=== PATIENT | male | born 1945 | race Caucasian/White ===

== ENCOUNTER 2017-07-23 08:23 | Day surgery (SDC) | payer MEDICARE, OTHER ==
[~2017-07-23] VITALS: Ht 180.3 cm; Wt 85.0 kg
[~2017-07-23 08:23] MED LIST: ASPI81CH PO; EPIN.3I IM; Inderal40 MG; LISI10 PO; LOSA50 PO; LOVA40; LOVA40 PO; METO100ER PO; OLME20 PO; PROP10 PO; Prednisone20 MG PO; ZOLP10 PO
[2017-07-23] MEDS ORDERED: PROP120ER (08:48)
[2017-07-23] MEDS ORDERED: PRIM250 (08:48)
== END 2017-07-23 10:16 | disposition home or self-care (01) ==
LOC: ORSCSDS 08:23
PROVIDERS: Internal Medicine Gastroenterology
PROC: 0D758ZZ Dilation of Esophagus, Via Natural or Artificial Opening Endoscopic (ICD-10-PCS; principal; 2017-07-23 09:30)
PROC: 0DB68ZX Excision of Stomach, Via Natural or Artificial Opening Endoscopic, Diagnostic (ICD-10-PCS; principal; 2017-07-23 09:30)
DX: R13.10 Dysphagia, unspecified (principal); K29.70 Gastritis, unspecified, without bleeding; I10 Essential (primary) hypertension; E78.5 Hyperlipidemia, unspecified; Z79.82 Long term (current) use of aspirin; Z79.899 Other long term (current) drug therapy
CPT/HCPCS: 88305; 88342; J7120

== ENCOUNTER 2018-10-28 10:58 | Day surgery (SDC) | payer MEDICARE, OTHER ==
[~2018-10-28] VITALS: Ht 180.3 cm; Wt 80.1 kg
[~2018-10-28 10:58] MED LIST changes: +ACID REDUCER20 MG PO; +LO-DOSE ASPIRIN81 MG PO; +LOSA25 PO; +Lovastatin20 MG PO; +PRIM250; +PRIM250 PO; +PROP120ER; +PROP120ER PO; +Primidone50 MG PO
--- NOTE | 2018-10-28 12:21 | NUR ---
10/28/[address] HAS BEEN AWARE OF PT'S BP SINCE START OF PROCEDURE AND HAS NOT GIVEN ANY ORDERS.
== END 2018-10-28 12:51 | disposition home or self-care (01) ==
LOC: ORSCSDS 10:58
PROVIDERS: Internal Medicine Gastroenterology
PROC: 0DBL8ZX Excision of Transverse Colon, Via Natural or Artificial Opening Endoscopic, Diagnostic (ICD-10-PCS; principal; 2018-10-28 12:15)
DX: Z12.11 Encounter for screening for malignant neoplasm of colon (principal); D12.2 Benign neoplasm of ascending colon; I10 Essential (primary) hypertension; E78.5 Hyperlipidemia, unspecified; Z79.82 Long term (current) use of aspirin; Z79.899 Other long term (current) drug therapy
CPT/HCPCS: 88305; J2704; J7120

== ENCOUNTER 2019-03-04 05:59 | Day surgery (SDC) | payer MEDICARE, OTHER ==
[~2019-03-04] VITALS: Ht 177.8 cm; Wt 82.0 kg
--- NOTE | 2019-03-04 06:30 | NUR ---
PT ADMITTED TO [facility]. AGREES WITH PLANNED SURGERY.
--- NOTE | 2019-03-04 06:49 | NUR ---
PT STATES HE PUT HIS HEARING AIDS IN THE BELONGINGS BAG. LUNG SOUNDS CLEAR. AT BEDSIDE.
--- NOTE | 2019-03-04 11:08 | NUR ---
RECEIVED REPORT FROM ELLEN WILLIAM RN. PT ARRIVED ALERT AND ORIENTED. VSS. TONGUE SWOLLEN WITH LEFT SIDE OF TONGUE COVERED IN A PURPLE BRUISE. PT IS HAVING SOME DIFFICULTY WITH SPEAKING, UNABLE TO PRONUNCIATE, STATES TONGUE FEELS SWOLLEN. PT TONGUE STARTED BLEEDING ON ANTERIOR MIDDLE PORTION OF TONGUE. CALL OUT TO DR DRIVER TO VOICE CONCERNS OF PATIENT GOING HOME FROM [facility].
--- NOTE | 2019-03-04 11:48 | NUR ---
SPOKE TO DR DRIVER REGARDING CONCERNS. NEW ORDERS TO SOAK GAUZE IN AFRIN AND APPLY TO TONGUE. HELD PRESSURE FOR 6 MINUTES. PT TOLERATED WELL. SCANT AMOUNT OF OOZINTG OF SANG DRAINAGE OUT ORAL CAVITY NOTED. PLACED MORE AFRIN SOAKED GAUZE ON TNGUE. WILL CONTITNUE TO MONITOR. 02 SATS BETTER WITH PT PRACTICING DEEP BREATHING.
--- NOTE | 2019-03-04 12:46 | NUR ---
PT TONGUE STOPPED OOZING AFTER DR DRIVER PROCEDURE. PT WANTS TO GO HOME. CALLED [facility] TO [facility]. Patient up to Ambulate independently. Gait steady. Discharge instructions reviewed with patient. Patient verbalizes understanding. Copy given to patient to take home. Patient States Post-Procedure ride home has been arranged. Discharged via wheelchair to private car for ride home. ALL BELONIGNS RETUNRED TO PATIENT. NO FURTHER BLEEDING NOTED. TONGUE SWELLING DOWN AT LEAST 50%. PT ABLE TO TALK AT BASE LINE AND DOES NOT HAVE ANY TROUBLE SWALLOWING SMALL AMOUNTS OF PAIN MEDS.
== END 2019-03-04 12:46 | disposition home or self-care (01) ==
LOC: ORSCMMR 05:59 → PRE IP 07:30 → EDSTATUS 07:30 → ORSCMMR 12:46 → SURS 12:46
PROVIDERS: Otolaryngology
PROC: 0DB58ZZ Excision of Esophagus, Via Natural or Artificial Opening Endoscopic (ICD-10-PCS; principal; 2019-03-04 07:30)
DX: K22.5 Diverticulum of esophagus, acquired (principal); J38.7 Other diseases of larynx; I10 Essential (primary) hypertension; K91.71 Accidental puncture and laceration of a digestive system organ or structure during a digestive system procedure; Y83.9 Surgical procedure, unspecified as the cause of abnormal reaction of the patient, or of later complication, without mention of misadventure at the time of the procedure; Y92.234 Operating room of hospital as the place of occurrence of the external cause; Z79.899 Other long term (current) drug therapy; Z79.82 Long term (current) use of aspirin
CPT/HCPCS: J1100; J1885; J2250; J2370; J2405; J2704; J3010; J7120

== ENCOUNTER → 2021-10-24 | Outpatient (CLI) | payer MEDICARE ==
[2021-10-24 11:18] LABS: BASOPHILS ABSOLUTE AUTO 0.04 K/mm3 (0.00-0.23); BASOPHILS PERCENT AUTO 1 % (0-2); EOSINOPHILS ABSOLUTE AUTO 0.04 K/mm3 (0.00-0.68); EOSINOPHILS PERCENT AUTO 1 % (0-6); Hematocrit 44.5 % (37.0-53.0); Hemoglobin 15.5 g/dL (13.5-17.5); IMMATURE GRAN ABSOLUTE AUTO 0.01 K/mm3 (0.00-0.10); IMMATURE GRAN PERCENT AUTO 0 % (0-1); LYMPHOCYTES ABSOLUTE AUTO 1.79 K/mm3 (0.84-5.20); LYMPHOCYTES PERCENT AUTO 32 % (21-46); MONOCYTES ABSOLUTE AUTO 0.59 K/mm3 (0.16-1.47); MONOCYTES PERCENT AUTO 10 % (4-13); Mean Corpuscular HGB 36.7 pg (26.0-34.0); Mean Corpuscular HGB Conc 34.8 g/dL (31.5-36.5); Mean Corpuscular Volume 106 fL (80-100); Mean Platelet Volume 9.3 fL (9.1-12.4); NEUTROPHILS ABSOLUTE AUTO 3.18 K/mm3 (1.96-9.15); NEUTROPHILS PERCENT AUTO 56 % (41-73); Platelet Count 204 K/mm3 (150-400); RDW Coefficient Variation 13.6 % (11.7-14.2); RDW Standard Deviation 52.8 fL (35.1-46.3); Red Blood Cell Count 4.22 M/mm3 (4.30-5.90); White Blood Cell Count 5.65 K/mm3 (4.00-11.30)
[2021-10-24 11:26] LABS: Albumin/Globulin Ratio 1.3 (0.8-1.8); Bilirubin, Total 0.6 mg/dL (0.1-1.0); Bun/Creatinine Ratio 11.3 (12.0-20.0); Calcium, Blood 8.7 mg/dL (8.5-10.1); Creatinine, Blood 0.8 mg/dL (0.60-1.20); Globulin, Blood 3.1 g/dL (2.2-4.0); Potassium, Blood 4.7 mmol/L (3.5-5.5); Total Protein, Blood 7.1 g/dL (6.4-8.2)
== END ==
LOC: LAB SHORT 11:09
PROVIDERS: Chiropractor
DX: R10.32 Left lower quadrant pain (principal); R00.2 Palpitations; Z79.899 Other long term (current) drug therapy; I48.91 Unspecified atrial fibrillation
CPT/HCPCS: 80053; 82607; 82746; 83690; 84443; 84484; 85025

== ENCOUNTER 2022-03-09 05:57 | Day surgery (SDC) | payer MEDICARE ==
[~2022-03-09] VITALS: Ht 177.8 cm; Wt 78.9 kg
[2022-03-09] MEDS ORDERED: ELIQUIS5 M2 PO (06:27)
--- NOTE | 2022-03-09 09:32 | NUR ---
Dressing to procedure site clean, dry, intact with no visible drainage, swelling, erythema or bruising noted.
--- NOTE | 2022-03-09 09:43 | NUR ---
Discharge instructions reviewed with patient. Patient verbalizes understanding. Copy given to patient to take home.
--- NOTE | 2022-03-09 10:02 | NUR ---
Dressing to procedure site clean, dry, intact with no visible drainage, swelling, erythema or bruising noted.
--- NOTE | 2022-03-09 10:02 | NUR ---
Discharged via wheelchair to private car for ride home.
== END 2022-03-09 09:55 | disposition home or self-care (01) ==
LOC: ORSCMMR 05:57 → ORD 07:30 → ORSCMMR 09:55
PROVIDERS: Surgery
PROC: 8E0W4CZ Robotic Assisted Procedure of Trunk Region, Percutaneous Endoscopic Approach (ICD-10-PCS; principal; 2022-03-09 07:30)
PROC: 0YU54JZ Supplement Right Inguinal Region with Synthetic Substitute, Percutaneous Endoscopic Approach (ICD-10-PCS; principal; 2022-03-09 07:30)
DX: K40.90 Unilateral inguinal hernia, without obstruction or gangrene, not specified as recurrent (principal); N40.0 Benign prostatic hyperplasia without lower urinary tract symptoms; I10 Essential (primary) hypertension; I48.91 Unspecified atrial fibrillation; G25.0 Essential tremor; E78.5 Hyperlipidemia, unspecified; Z79.01 Long term (current) use of anticoagulants; Z79.899 Other long term (current) drug therapy
CPT/HCPCS: 49650; S2900; C1781; J0690; J1100; J1885; J2250; J2405; J2704; J2795; J3010; J7120

== ENCOUNTER 2024-05-15 10:14 | Day surgery (SDC) | payer MEDICARE ==
[~2024-05-15] VITALS: Ht 177.8 cm; Wt 78.7 kg
[~2024-05-15 10:14] MED LIST changes: +ELIQUIS5 M2 PO; +Lactated Ringer's 1,000 ML IV ONE; +Lidocaine HCl/Pf 1% 5 ML VIAL ONE; +propofoL 50 ML IV ONE
[2024-05-15] MEDS ORDERED: Lactated Ringer's 1,000 ML IV ONE (11:55)
[2024-05-15 13:20] VITALS: BP 118/91
== END 2024-05-15 13:26 | disposition home or self-care (01) ==
LOC: ORSCSDS 10:14
DX: Z12.11 Encounter for screening for malignant neoplasm of colon (principal); D12.2 Benign neoplasm of ascending colon; D12.3 Benign neoplasm of transverse colon; E78.5 Hyperlipidemia, unspecified; I10 Essential (primary) hypertension; Z86.0101 Personal history of adenomatous and serrated colon polyps; N40.0 Benign prostatic hyperplasia without lower urinary tract symptoms; G25.0 Essential tremor; Z79.01 Long term (current) use of anticoagulants; Z79.899 Other long term (current) drug therapy
CPT/HCPCS: 88305; J2003; J2704; J7120